=== PATIENT | female | born 1940 | race Hispanic/Latino ===

== ENCOUNTER 2019-03-13 13:53 | Outpatient (CLI) | payer MEDICARE, BC ==
--- NOTE | 2019-03-13 20:01 | Vascular Lab Report ---
PROCEDURE: VL VENOUS DUPLEX LE LT TECHNIQUE: Duplex Doppler sonography of the left leg. Ramírez scale imaging with and without compressio n, spectral waveform analysis with and without augmentation, and color flow Doppler were employed. HISTORY: EMBOLISM AND THROMBOSIS OF LEFT LOWER EXTREMITY . Left lower extremity and groin pain for 2- 3 days. 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 IVC filter in place COMPARISONS: None FINDINGS: Deep Venous Thrombus: None Superficial Venous Thrombus: None Venous valvular incompetence: None Soft tissue abnormality: None IMPRESSION: No evidence of deep venous thrombosis This document is electronically signed by Radha Carias MD., Mar 13 2019 07:59:50 PM ET
== END 2019-03-13 13:54 | disposition home or self-care (01) ==
LOC: VAS 13:53
PROVIDERS: ATTEND Radiology Diagnostic Radiology
DX: I82.502 Chronic embolism and thrombosis of unspecified deep veins of left lower extremity (principal)